=== PATIENT | male | born 1980 | race Hispanic/Latino ===

== ENCOUNTER 2025-02-02 10:22 | Inpatient (IN) | payer SELFPAY ==
[2025-02-02 10:53] LABS: #Basophils Less than 0.03 10x3/uL (0.0-0.2); #Eosinophils 0.06 10x3/uL (0.0-0.7); #Monocytes 0.89 10x3/uL (0.11-0.59); #Neutrophils 10.62 10x3/uL (1.40-6.50); %Basophils 0.2 % (0.0-1.0); %Eosinophils 0.5 % (0.0-10.0); %Lymphocytes 9.8 % (21.0-51.0); %Monocytes 6.9 % (0.0-10.0); %Neutrophils 82.1 % (42.0-75.0); Hematocrit 37.4 % (42.0-52.0); Hemoglobin 12.7 g/dL (14.0-18.0); Mean Corpuscular Hemoglobin 28.5 pg (27.0-31.0); Mean Corpuscular Volume 84.0 fL (78.0-98.0); Platelet Count 287 10x3/uL (130-400); Red Blood Cell (RBC) Count 4.45 mill/uL (4.70-6.10); White Blood Cell (WBC) Count 12.91 10x3/uL (4.8-10.8)
[2025-02-02 11:09] LABS: ALT (SGPT) 50 U/L (Less than 45); AST (SGOT) 29 U/L (11-34); Albumin 3.1 g/dL (3.1-4.5); Alkaline Phosphatase 396 U/L (40-110); Anion Gap 9 mmol/L (10-20); BUN (Urea Nitrogen) 9 mg/dL (8.9-20.6); Bilirubin, Total 0.7 mg/dL (0.3-1.2); Calc. Creatinine Clearance 0 mL/min (70-130); Calcium 9.1 mg/dL (7.8-10.44); Carbon Dioxide 27 mmol/L (22-29); Chloride 98 mmol/L (98-107); Globulin 3.7 g/dL (2.4-3.5); Glucose 347 mg/dL (70-105); Lipase 19 U/L (8-78); Potassium 4.2 mmol/L (3.5-5.1); Sodium 130 mmol/L (136-145)
[2025-02-02] MEDS ORDERED: GASTROGRAFIN 30 ML BOT ONE (11:39)
[2025-02-02] MEDS ORDERED: Iopamidol-370 76% 500 ML MDV (1 ML CHARGE) ONE (11:39)
[2025-02-02] MEDS ORDERED: Ondansetron PF 4 MG/2 ML Vial ONE ×2 (11:46→16:05)
[2025-02-02] MEDS ORDERED: SUCCINYLCHOLINE/SOD CL,ISO/PF 200 MG/10 ML SYRINGE FS ONE (15:10)
[2025-02-02] MEDS ORDERED: fentaNYL PF 100 MCG/2 ML SYRINGE ONE ×3 (15:10→17:55)
[2025-02-02] MEDS ORDERED: PROPOFOL 20 ML ONE (15:10)
[2025-02-02] MEDS ORDERED: Rocuronium Bromide 10 MG/ML (10ML VIAL) ONE (15:10)
[2025-02-02] MEDS ORDERED: Famotidine/PF 20 mg/2ml Vial ONE (15:12)
[2025-02-02] MEDS ORDERED: PHENYLEPHRINE-NS 100 MCG/ML 10 ML SYRINGE ONE (15:52)
[2025-02-02] MEDS ORDERED: SUGAMMADEX SODIUM 200 MG/2 ML VIAL ONE ×2 (16:05)
[2025-02-02] MEDS ORDERED: Ketorolac Tromethamine 30 MG (1 mL) VIAL ONE (16:05)
[2025-02-02] MEDS ORDERED: Dextrose 50% Abboject 50 ML SYRINGE SLOW IVP PRN ×2 (16:18→20:46)
[2025-02-02] MEDS ORDERED: Glucagon 1 MG/ML KIT IM PRN ×2 (16:18→20:46)
[2025-02-02] MEDS ORDERED: Mag-Al 1200 mg/1200 mg/30 ML UDCUP PO PRN (16:18)
[2025-02-02] MEDS ORDERED: HYDROmorphone 0.5 MG/0.5 ML SYRINGE ONE ×2 (17:21→17:56)
[2025-02-02] MEDS ORDERED: Acetaminophen 500 MG TAB ONE (18:33)
[2025-02-02 19:58] VITALS: BMI 31.0
[2025-02-02] MEDS ORDERED: TETANUS AND DIPHTHERIA TOX/PF 0.5 ML DISP.SYRIN IM SCH (21:15)
[2025-02-02] MEDS: hydrALAZINE 20 MG/ML VIAL SLOW IVP PRN (22:49)
[2025-02-02] MEDS: Ondansetron PF 4 MG/2 ML Vial IVP PRN (23:21)
[2025-02-02] MEDS: Ketorolac Tromethamine 30 MG (1 mL) VIAL IVP SCH (23:21)
[2025-02-02] MEDS: Famotidine/PF 20 mg/2ml Vial SLOW IVP SCH (23:21)
[2025-02-03 06:17] LABS: #Basophils Less than 0.03 10x3/uL (0.0-0.2); #Eosinophils Less than 0.03 10x3/uL (0.0-0.7); #Monocytes 0.36 10x3/uL (0.11-0.59); #Neutrophils 12.91 10x3/uL (1.40-6.50); %Basophils 0.1 % (0.0-1.0); %Eosinophils 0.0 % (0.0-10.0); %Lymphocytes 5.1 % (21.0-51.0); %Monocytes 2.6 % (0.0-10.0); %Neutrophils 91.6 % (42.0-75.0); Hematocrit 36.0 % (42.0-52.0); Hemoglobin 11.8 g/dL (14.0-18.0); Mean Corpuscular Hemoglobin 27.7 pg (27.0-31.0); Mean Corpuscular Volume 84.5 fL (78.0-98.0); Platelet Count 276 10x3/uL (130-400); Red Blood Cell (RBC) Count 4.26 mill/uL (4.70-6.10); White Blood Cell (WBC) Count 14.10 10x3/uL (4.8-10.8)
[2025-02-03 06:34] LABS: ALT (SGPT) 45 U/L (Less than 45); AST (SGOT) 39 U/L (11-34); Albumin 2.7 g/dL (3.1-4.5); Alkaline Phosphatase 375 U/L (40-110); Anion Gap 15 mmol/L (10-20); BUN (Urea Nitrogen) 19 mg/dL (8.9-20.6); Bilirubin, Total 0.6 mg/dL (0.3-1.2); Calc. Creatinine Clearance 128 mL/min (70-130); Calcium 8.6 mg/dL (7.8-10.44); Carbon Dioxide 22 mmol/L (22-29); Chloride 99 mmol/L (98-107); Globulin 3.6 g/dL (2.4-3.5); Glucose 325 mg/dL (70-105); Lipase 8 U/L (8-78); Potassium 5.1 mmol/L (3.5-5.1); Sodium 131 mmol/L (136-145)
[2025-02-03] MEDS: TETANUS, DIPHTHERIA TOX,ADULT (TDVAX) 0.5 ML VIAL IM ONE (07:54)
[2025-02-03] MEDS: Insulin Glargine 30 UNITS/0.3 ML VIAL SC SCH ×2 (13:37→21:12)
[2025-02-03] MEDS: metFORMIN 500 MG TAB PO SCH (16:38)
[2025-02-03] MEDS: Calcium Carbonate 500 MG ChewTAB PO PRN (21:10)
[2025-02-03] MEDS: Senokot 8.6 MG TAB PO SCH (21:14)
[2025-02-03 22:20] LABS: ALT (SGPT) 30 U/L (Less than 45); AST (SGOT) 14 U/L (11-34); Albumin 2.4 g/dL (3.1-4.5); Alkaline Phosphatase 283 U/L (40-110); Anion Gap 10 mmol/L (10-20); BUN (Urea Nitrogen) 17 mg/dL (8.9-20.6); Bilirubin, Total 0.3 mg/dL (0.3-1.2); Calc. Creatinine Clearance 121 mL/min (70-130); Calcium 8.3 mg/dL (7.8-10.44); Carbon Dioxide 25 mmol/L (22-29); Chloride 100 mmol/L (98-107); Globulin 3.2 g/dL (2.4-3.5); Glucose 230 mg/dL (70-105); Potassium 4.0 mmol/L (3.5-5.1); Sodium 131 mmol/L (136-145)
[2025-02-04 06:12] LABS: #Basophils 0.03 10x3/uL (0.0-0.2); #Eosinophils 0.05 10x3/uL (0.0-0.7); #Monocytes 0.94 10x3/uL (0.11-0.59); #Neutrophils 9.10 10x3/uL (1.40-6.50); %Basophils 0.2 % (0.0-1.0); %Eosinophils 0.4 % (0.0-10.0); %Lymphocytes 17.1 % (21.0-51.0); %Monocytes 7.7 % (0.0-10.0); %Neutrophils 74.2 % (42.0-75.0); Hematocrit 33.3 % (42.0-52.0); Hemoglobin 11.2 g/dL (14.0-18.0); Mean Corpuscular Hemoglobin 28.0 pg (27.0-31.0); Mean Corpuscular Volume 83.3 fL (78.0-98.0); Platelet Count 309 10x3/uL (130-400); Red Blood Cell (RBC) Count 4.00 mill/uL (4.70-6.10); White Blood Cell (WBC) Count 12.27 10x3/uL (4.8-10.8)
[2025-02-04] MEDS: Acetaminophen 325 MG TAB PO PRN (08:50)
[2025-02-04] MEDS: Ibuprofen 200 MG TAB PO SCH (12:06)
[2025-02-04 12:38] VITALS: BMI 31.0
[2025-02-04] MEDS: HYDROcodone/Acetaminophen 10/325 mg Tablet PO PRN (14:03)
[2025-02-04 16:46] VITALS: BP 130/80; TEMP 97.7
[2025-02-05] MEDS ORDERED: FLU (Fluarix Triv) 25-26 (6MOS UP)/PF 45 MCG/0.5 ML Syringe IM ONE (09:00)
== END 2025-02-04 18:29 | disposition home or self-care (01) | DRG 419 ==
LOC: ERS 10:22 → ERHOLD 13:41 → SURG A 14:01 → OBSVTOIN 02-04 08:43
PROVIDERS: ADMIT Surgery; ATTEND Surgery
PROC: 0FT44ZZ Resection of Gallbladder, Percutaneous Endoscopic Approach (ICD-10-PCS; principal; 2025-02-02)
PROC: 8E0W4CZ Robotic Assisted Procedure of Trunk Region, Percutaneous Endoscopic Approach (ICD-10-PCS; 2025-02-02)
PROC: 3E03329 Introduction of Other Anti-infective into Peripheral Vein, Percutaneous Approach (ICD-10-PCS; 2025-02-02)
PROC: 3E0234Z Introduction of Serum, Toxoid and Vaccine into Muscle, Percutaneous Approach (ICD-10-PCS; 2025-02-02)
DX: K81.0 Acute cholecystitis (principal); E66.9 Obesity, unspecified; F17.210 Nicotine dependence, cigarettes, uncomplicated; K59.00 Constipation, unspecified; F10.90 Alcohol use, unspecified, uncomplicated; E11.9 Type 2 diabetes mellitus without complications; Z68.31 Body mass index [BMI] 31.0-31.9, adult; Z23 Encounter for immunization; Z98.890 Other specified postprocedural states
CPT/HCPCS: 36415; 36416; 74177; 76705; 80053; 83036; 83690; 85025; 88304; 96374; 96375; 96376; C1713; G0378; J0360; J1100; J1171; J1815; J1885; J2270; J2543; J2704; J3010; J7120; Q9963; Q9967; S2900

== ENCOUNTER 2025-02-21 17:36 | Inpatient (IN) | payer SELFPAY ==
[~2025-02-21 17:36] MED LIST: Iopamidol-370 76% 500 ML MDV (1 ML CHARGE) ONE
[2025-02-21 19:26] LABS: #Basophils Less than 0.03 10x3/uL (0.0-0.2); #Eosinophils 0.09 10x3/uL (0.0-0.7); #Monocytes 0.73 10x3/uL (0.11-0.59); #Neutrophils 6.36 10x3/uL (1.40-6.50); %Basophils 0.2 % (0.0-1.0); %Eosinophils 0.9 % (0.0-10.0); %Lymphocytes 24.8 % (21.0-51.0); %Monocytes 7.6 % (0.0-10.0); %Neutrophils 66.2 % (42.0-75.0); Hematocrit 39.6 % (42.0-52.0); Hemoglobin 12.7 g/dL (14.0-18.0); Mean Corpuscular Hemoglobin 27.1 pg (27.0-31.0); Mean Corpuscular Volume 84.6 fL (78.0-98.0); Platelet Count 377 10x3/uL (130-400); Red Blood Cell (RBC) Count 4.68 mill/uL (4.70-6.10); White Blood Cell (WBC) Count 9.61 10x3/uL (4.8-10.8)
[2025-02-21 19:39] LABS: ALT (SGPT) 33 U/L (Less than 45); AST (SGOT) 40 U/L (11-34); Albumin 3.6 g/dL (3.1-4.5); Alkaline Phosphatase 311 U/L (40-110); Anion Gap 16 mmol/L (10-20); BUN (Urea Nitrogen) 19 mg/dL (8.9-20.6); Bilirubin, Total 0.5 mg/dL (0.3-1.2); Calc. Creatinine Clearance 0 mL/min (70-130); Calcium 9.5 mg/dL (7.8-10.44); Carbon Dioxide 23 mmol/L (22-29); Chloride 102 mmol/L (98-107); Globulin 4.0 g/dL (2.4-3.5); Glucose 75 mg/dL (70-105); Lipase 17 U/L (8-78); Potassium 4.5 mmol/L (3.5-5.1); Sodium 136 mmol/L (136-145)
[2025-02-21] MEDS ORDERED: Ondansetron PF 4 MG/2 ML Vial ONE (19:51)
[2025-02-21] MEDS ORDERED: Ketorolac Tromethamine 30 MG (1 mL) VIAL ONE (19:51)
[2025-02-21 20:26] LABS: Magnesium 2.0 mg/dL (1.6-2.6)
[2025-02-21 20:49] LABS: CAUTI Indications for Culture Pelvic or flank pain; Glucose, Urine (Dipstick) Normal (Negative); Leukocyte 500 Leu/uL (Negative); Protein, Urine (Dipstick) 20 mg/dL (Neg-Trace); Specific Gravity, Urine 1.028 (1.002-1.036); WBC/HPF Greater than 50 HPF (0-3)
[2025-02-21 20:50] LABS: Bacteria/HPF 1+ HPF (None Seen)
[2025-02-21 20:52] LABS: Urine Culture Reflex Yes Yes
[2025-02-21] MEDS ORDERED: cefTRIAXone (ROCEPHIN) 2 GM VIAL ONE (21:04)
[2025-02-21] MEDS ORDERED: Dextrose 50% Abboject 50 ML SYRINGE SLOW IVP PRN (23:03)
[2025-02-21] MEDS ORDERED: hydrALAZINE 20 MG/ML VIAL SLOW IVP PRN (23:03)
[2025-02-21] MEDS ORDERED: Ondansetron PF 4 MG/2 ML Vial IVP PRN (23:03)
[2025-02-22 01:22] VITALS: BMI 29.5
[2025-02-22] MEDS: Glucagon 1 MG/ML KIT IM PRN (01:29)
[2025-02-22 04:59] LABS: #Basophils 0.03 10x3/uL (0.0-0.2); #Eosinophils 0.12 10x3/uL (0.0-0.7); #Monocytes 0.84 10x3/uL (0.11-0.59); #Neutrophils 7.60 10x3/uL (1.40-6.50); %Basophils 0.3 % (0.0-1.0); %Eosinophils 1.2 % (0.0-10.0); %Lymphocytes 17.2 % (21.0-51.0); %Monocytes 8.1 % (0.0-10.0); %Neutrophils 72.9 % (42.0-75.0); Hematocrit 32.7 % (42.0-52.0); Hemoglobin 11.1 g/dL (14.0-18.0); Mean Corpuscular Hemoglobin 28.3 pg (27.0-31.0); Mean Corpuscular Volume 83.4 fL (78.0-98.0); Platelet Count 286 10x3/uL (130-400); Red Blood Cell (RBC) Count 3.92 mill/uL (4.70-6.10); White Blood Cell (WBC) Count 10.41 10x3/uL (4.8-10.8)
[2025-02-22 05:29] LABS: ALT (SGPT) 58 U/L (Less than 45); AST (SGOT) 103 U/L (11-34); Albumin 2.8 g/dL (3.1-4.5); Alkaline Phosphatase 302 U/L (40-110); Anion Gap 11 mmol/L (10-20); BUN (Urea Nitrogen) 19 mg/dL (8.9-20.6); Bilirubin, Total 0.5 mg/dL (0.3-1.2); Calc. Creatinine Clearance 113 mL/min (70-130); Calcium 8.4 mg/dL (7.8-10.44); Carbon Dioxide 22 mmol/L (22-29); Chloride 108 mmol/L (98-107); Globulin 3.3 g/dL (2.4-3.5); Glucose 97 mg/dL (70-105); Potassium 3.8 mmol/L (3.5-5.1); Sodium 137 mmol/L (136-145)
[2025-02-22] MEDS: Senokot S 8.6-50 MG TAB PO SCH (08:05)
[2025-02-22] MEDS: Acetaminophen 325 MG TAB PO PRN (17:34)
[2025-02-22] MEDS: Methocarbamol 500 MG TAB PO PRN (20:41)
[2025-02-22] MEDS: cefTRIAXone\\ROCEPHIN 1 GM in Sodium Chloride 0.9% 100 ML IVPB SCH (20:41)
[2025-02-22] MEDS ORDERED: Vancomycin 1 GM in Premix 1 BAG IVPB SCH (21:00)
[2025-02-23] MEDS: VANCOMYCIN 2 GRAM/400 ML Premix BAG IVPB SCH (01:35)
[2025-02-23 05:24] LABS: #Basophils Less than 0.03 10x3/uL (0.0-0.2); #Eosinophils 0.19 10x3/uL (0.0-0.7); #Monocytes 0.71 10x3/uL (0.11-0.59); #Neutrophils 5.58 10x3/uL (1.40-6.50); %Basophils 0.2 % (0.0-1.0); %Eosinophils 2.3 % (0.0-10.0); %Lymphocytes 20.0 % (21.0-51.0); %Monocytes 8.7 % (0.0-10.0); %Neutrophils 68.3 % (42.0-75.0); Hematocrit 33.8 % (42.0-52.0); Hemoglobin 11.2 g/dL (14.0-18.0); Mean Corpuscular Hemoglobin 27.9 pg (27.0-31.0); Mean Corpuscular Volume 84.1 fL (78.0-98.0); Platelet Count 278 10x3/uL (130-400); Red Blood Cell (RBC) Count 4.02 mill/uL (4.70-6.10); White Blood Cell (WBC) Count 8.17 10x3/uL (4.8-10.8)
[2025-02-23 05:38] LABS: Vancomycin, Random 29.6 ug/mL (See Comment)
[2025-02-23 05:39] LABS: ALT (SGPT) 208 U/L (Less than 45); AST (SGOT) 147 U/L (11-34); Albumin 2.9 g/dL (3.1-4.5); Alkaline Phosphatase 588 U/L (40-110); Anion Gap 13 mmol/L (10-20); BUN (Urea Nitrogen) 10 mg/dL (8.9-20.6); Bilirubin, Total 0.4 mg/dL (0.3-1.2); Calc. Creatinine Clearance 123 mL/min (70-130); Calcium 8.6 mg/dL (7.8-10.44); Carbon Dioxide 25 mmol/L (22-29); Chloride 105 mmol/L (98-107); Globulin 3.0 g/dL (2.4-3.5); Glucose 120 mg/dL (70-105); Potassium 4.7 mmol/L (3.5-5.1); Sodium 138 mmol/L (136-145)
[2025-02-23] MEDS ORDERED: Vancomycin 1.25 GM / NS 250 ML VIAL-2-BAG IVPB SCH (06:00)
[2025-02-23] MEDS: Vancomycin 1.25 GM / NS 250 ML VIAL-2-BAG IVPB SCH (12:29)
[2025-02-23] MEDS: FLU (Fluarix Triv) 25-26 (6MOS UP)/PF 45 MCG/0.5 ML Syringe IM ONE (21:28)
[2025-02-24 05:46] LABS: #Basophils 0.03 10x3/uL (0.0-0.2); #Eosinophils 0.14 10x3/uL (0.0-0.7); #Monocytes 0.56 10x3/uL (0.11-0.59); #Neutrophils 3.08 10x3/uL (1.40-6.50); %Basophils 0.6 % (0.0-1.0); %Eosinophils 2.6 % (0.0-10.0); %Lymphocytes 29.7 % (21.0-51.0); %Monocytes 10.3 % (0.0-10.0); %Neutrophils 56.6 % (42.0-75.0); Hematocrit 33.0 % (42.0-52.0); Hemoglobin 10.9 g/dL (14.0-18.0); Mean Corpuscular Hemoglobin 27.6 pg (27.0-31.0); Mean Corpuscular Volume 83.5 fL (78.0-98.0); Platelet Count 314 10x3/uL (130-400); Red Blood Cell (RBC) Count 3.95 mill/uL (4.70-6.10); White Blood Cell (WBC) Count 5.43 10x3/uL (4.8-10.8)
[2025-02-24 06:09] LABS: Vancomycin, Random 20.4 ug/mL (See Comment)
[2025-02-24 06:15] LABS: ALT (SGPT) 111 U/L (Less than 45); AST (SGOT) 38 U/L (11-34); Albumin 2.9 g/dL (3.1-4.5); Alkaline Phosphatase 443 U/L (40-110); Anion Gap 12 mmol/L (10-20); BUN (Urea Nitrogen) 10 mg/dL (8.9-20.6); Bilirubin, Total 0.4 mg/dL (0.3-1.2); Calc. Creatinine Clearance 146 mL/min (70-130); Calcium 8.9 mg/dL (7.8-10.44); Carbon Dioxide 23 mmol/L (22-29); Chloride 104 mmol/L (98-107); Globulin 3.5 g/dL (2.4-3.5); Glucose 115 mg/dL (70-105); Potassium 3.9 mmol/L (3.5-5.1); Sodium 135 mmol/L (136-145)
[2025-02-25] MEDS: Melatonin 3 MG TAB PO PRN (02:55)
[2025-02-25 05:16] LABS: #Basophils Less than 0.03 10x3/uL (0.0-0.2); #Eosinophils 0.19 10x3/uL (0.0-0.7); #Monocytes 0.47 10x3/uL (0.11-0.59); #Neutrophils 3.21 10x3/uL (1.40-6.50); %Basophils 0.4 % (0.0-1.0); %Eosinophils 3.3 % (0.0-10.0); %Lymphocytes 31.7 % (21.0-51.0); %Monocytes 8.2 % (0.0-10.0); %Neutrophils 56.2 % (42.0-75.0); Hematocrit 32.7 % (42.0-52.0); Hemoglobin 10.9 g/dL (14.0-18.0); Mean Corpuscular Hemoglobin 27.7 pg (27.0-31.0); Mean Corpuscular Volume 83.2 fL (78.0-98.0); Platelet Count 299 10x3/uL (130-400); Red Blood Cell (RBC) Count 3.93 mill/uL (4.70-6.10); White Blood Cell (WBC) Count 5.71 10x3/uL (4.8-10.8)
[2025-02-25 05:36] LABS: ALT (SGPT) 76 U/L (Less than 45); AST (SGOT) 21 U/L (11-34); Albumin 2.9 g/dL (3.1-4.5); Alkaline Phosphatase 392 U/L (40-110); Anion Gap 12 mmol/L (10-20); BUN (Urea Nitrogen) 9 mg/dL (8.9-20.6); Bilirubin, Total 0.4 mg/dL (0.3-1.2); Calc. Creatinine Clearance 135 mL/min (70-130); Calcium 9.0 mg/dL (7.8-10.44); Carbon Dioxide 24 mmol/L (22-29); Chloride 106 mmol/L (98-107); Globulin 3.6 g/dL (2.4-3.5); Glucose 123 mg/dL (70-105); Potassium 4.0 mmol/L (3.5-5.1); Sodium 138 mmol/L (136-145)
[2025-02-25 16:57] VITALS: BP 146/87; TEMP 98.3
== END 2025-02-25 16:00 | disposition home or self-care (01) | DRG 690 ==
LOC: ERS 17:36 → OBSVTOIN 23:03 → SURG B 23:03
PROVIDERS: ADMIT Surgery; ATTEND Surgery
PROC: 3E03329 Introduction of Other Anti-infective into Peripheral Vein, Percutaneous Approach (ICD-10-PCS; principal; 2025-02-21)
PROC: 3E0234Z Introduction of Serum, Toxoid and Vaccine into Muscle, Percutaneous Approach (ICD-10-PCS; 2025-02-22)
DX: N10 Acute pyelonephritis (principal); F10.90 Alcohol use, unspecified, uncomplicated; E11.9 Type 2 diabetes mellitus without complications; E78.5 Hyperlipidemia, unspecified; R74.01 Elevation of levels of liver transaminase levels; Z90.49 Acquired absence of other specified parts of digestive tract; Z98.1 Arthrodesis status; Z98.890 Other specified postprocedural states; Z83.3 Family history of diabetes mellitus; Z79.899 Other long term (current) drug therapy; Z79.84 Long term (current) use of oral hypoglycemic drugs; Z79.01 Long term (current) use of anticoagulants; Z23 Encounter for immunization
CPT/HCPCS: 36415; 36416; 71045; 74177; 74183; 76376; 80053; 80202; 81001; 83605; 83690; 83735; 83880; 84484; 85025; 87077; 87081; 87086; 87186; 96365; 96375; 96376; G0378; J0696; J1611; J1885; J2060; J2270; J2405; J2543; J3010; J3373; J3375; J7050; J7120; Q9967; S8037